=== PATIENT | female | born 1960 | race Caucasian/White ===

== ENCOUNTER 2020-06-10 16:09 | Emergency (ER) | payer BC ==
[2020-06-10] MEDS ORDERED: SODIUM CHLORIDE 0.9% 500 ML 500 ML IV STA (16:25)
--- NOTE | 2020-06-10 16:51 | ED ---
URI HPI - General Source: patient Mode of arrival: ambulatory Limitations: no limitations <Jayro Saavedra - Last Filed: 06/10/20 18:59> <Sweetie Yan - Last Filed: 06/12/20 02:00> - General Chief Complaint: Upper Respiratory Infection Stated Complaint: SOB, Congestion Time Seen by Provider: 06/10/20 16:19 - History of Present Illness Initial Comments: 60-year-old female presents to the emergency department with a chief complaint of sinus congestion and headache. Patient does have history of sinusitis and h as them yearly around this time. Patient reports he typically treated with an appendix. She reports symptoms for the past several days and reports pressure pain in her frontal and maxillary sinuses. She also reports postnasal drip but denies any rhinorrhea. She denies any sore throat or otalgia. Denies any cough chest pain or shortness of breath. Denies any fevers or chills. Denies possible exposure to cold. States she was tested approximately 2 weeks ago and was negative for it. She states she is also very anxious and does not want to be here. (Jayro Saavedra) - Related Data Previous Rx's Medication Instructions Recorded Amoxicillin/Potassium Clav 1 tab PO Q12HR #20 tab 06/10/20 [Augmentin 875-125 Tablet] Allergies Allergy/AdvReac Type Severity Reaction Status Date / Time No Known Allergies Allergy Verified 06/10/20 16:18 Review of Systems ROS Other: All systems not noted in ROS Statement are negative. <Jayro Saavedra - Last Filed: 06/10/20 18:59> ROS Other: All systems not noted in ROS Statement are negative. <Sweetie Yan - Last Filed: 06/12/20 02:00> ROS Statement: Those systems with pertinent positive or pertinent negative responses have been documented in the HPI. Past Medical History Past Medical History: No Reported History History of Any Multi-Drug Resistant Organisms: None Reported Past Surgical History: No Surgical Hx Reported Smoking Status: Never smoker Past Alcohol Use History: None Reported Past Drug Use History: None Reported <Jayro Saavedra - Last Filed: 06/10/20 18:59> General Exam Limitations: no limitations General appearance: alert, in no apparent distress, anxious Head exam: Present: atraumatic, normocephalic, normal inspection Eye exam: Present: normal appearance, PERRL, EOMI Pupils: Present: normal accommodation ENT exam: Present: normal exam, mucous membranes moist, TM's normal bilaterally, normal external ear exam. Absent: normal oropharynx (Frontal and maxillary sinus tenderness) Neck exam: Present: normal inspection, full ROM. Absent: tenderness, lymphadenopathy Respiratory exam: Present: normal lung sounds bilaterally. Absent: respiratory distress, wheezes, rales, rhonchi, stridor, chest wall tenderness, accessory muscle use Cardiovascular Exam: Present: regular rate, normal rhythm, normal heart sounds Extremities exam: Present: normal inspection, full ROM, normal capillary refill. Absent: tenderness, pedal edema, joint swelling Back exam: Present: normal inspection, full ROM. Absent: tenderness, CVA tenderness (R), CVA tenderness (L) Neurological exam: Present: alert, oriented X3 Psychiatric exam: Present: normal affect, anxious Skin exam: Present: warm, dry, intact, normal color <Jayro Saavedra - Last Filed: 06/10/20 18:59> Course Vital Signs 06/10/20 06/10/20 06/10/20 16:14 17:16 17:30 Temperature 98.0 F 98.6 F 98.2 F Pulse Rate 118 H 120 H 81 Respiratory 18 18 15 Rate Blood Pressure 166/83 148/80 156/75 O2 Sat by Pulse 98 96 97 Oximetry 06/10/20 06/10/20 18:21 19:22 Temperature 97.9 F Pulse Rate 118 H 110 H Respiratory 18 18 Rate Blood Pressure 169/85 O2 Sat by Pulse 100 97 Oximetry Medical Decision Making - Lab Data Result diagrams: 06/10/20 18:14 06/10/20 18:14 <Jayro Saavedra - Last Filed: 06/10/20 18:59> - Lab Data Result diagrams: 06/10/20 18:14 06/10/20 18:14 <Sweetie Yan - Last Filed: 06/12/20 02:00> - Medical Decision Making 60-year-old male presents to emergency Department with a chief complaint of sinus congestion. On physical examination, she does have frontal maxillary sinus tenderness. This feels like her typical sinus infection that she gets y early. I will treat her with Augmentin. Patient is also very anxious and is likely causing her tachycardia. No chest pain or shortness of breath. Patient continued to have a heart rate of 120. Laboratory workup was initiated and it was unremarkable. Negative d-dimer. Patient will be discharged with outpatient follow-up. Patient advised to follow-up with the primary care physician. She'll return parameters were thoroughly discussed with patient's worsening agreeable. Case discussed with (Jayro Saavedra) I was available for consultation in the emergency department. The history and physical exam were done by the midlevel provider. I was consulted for this patients care. I reviewed the case with the midlevel provider and based on their presentation of the patient, I agree with the assessment, medical decision making and plan of care as documented. Chart was dictated using [employer] dictation software. Attempts were made to correct any dictation errors however some typographical errors may persist. Patient was seen during a national state of emergency due to the Covid-19 pandemic. (Sweetie Yan) - Lab Data Lab Results 06/10/20 06/10/20 06/10/20 Range/Units 16:32 18:14 18:14 WBC 8.8 (3.8-10.6) k/uL RBC 4.27 (3.80-5.40) m/uL Hgb 13.9 (11.4-16.0) gm/dL Hct 39.4 (34.0-46.0) % MCV 92.3 (80.0-100.0) fL MCH 32.6 (25.0-35.0) pg MCHC 35.3 (31.0-37.0) g/dL RDW 12.0 (11.5-15.5) % Plt Count 270 (150-450) k/uL MPV 7.3 Neutrophils % 68 % Lymphocytes % 23 % Monocytes % 5 % Eosinophils % 1 % Basophils % 1 % Neutrophils # 6.0 (1.3-7.7) k/uL Lymphocytes # 2.1 (1.0-4.8) k/uL Monocytes # 0.4 (0-1.0) k/uL Eosinophils # 0.1 (0-0.7) k/uL Basophils # 0.1 (0-0.2) k/uL PT 11.3 (9.0-12.0) sec INR 1.1 (<1.2) APTT 22.7 (22.0-30.0) sec D-Dimer 0.37 (<0.60) mg/L FEU Sodium (137-145) mmol/L Potassium (3.5-5.1) mmol/L Chloride (98-107) mmol/L Carbon Dioxide (22-30) mmol/L Anion Gap mmol/L BUN (7-17) mg/dL Creatinine (0.52-1.04) mg/dL Est GFR (CKD-EPI)AfAm (>60 ml/min/1.73 sqM) Est GFR (CKD-EPI)NonAf (>60 ml/min/1.73 sqM) Glucose (74-99) mg/dL Calcium (8.4-10.2) mg/dL Magnesium (1.6-2.3) mg/dL Total Bilirubin (0.2-1.3) mg/dL AST (14-36) U/L ALT (4-34) U/L Alkaline Phosphatase (38-126) U/L Troponin I (0.000-0.034) ng/mL Total Protein (6.3-8.2) g/dL Albumin (3.5-5.0) g/dL Coronavirus (PCR) Not Detected (Not Detectd) 06/10/20 06/10/20 Range/Units 18:14 18:14 WBC (3.8-10.6) k/uL RBC (3.80-5.40) m/uL Hgb (11.4-16.0) gm/dL Hct (34.0-46.0) % MCV (80.0-100.0) fL MCH (25.0-35.0) pg MCHC (31.0-37.0) g/dL RDW (11.5-15.5) % Plt Count (150-450) k/uL MPV Neutrophils % % Lymphocytes % % Monocytes % % Eosinophils % % Basophils % % Neutrophils # (1.3-7.7) k/uL Lymphocytes # (1.0-4.8) k/uL Monocytes # (0-1.0) k/uL Eosinophils # (0-0.7) k/uL Basophils # (0-0.2) k/uL PT (9.0-12.0) sec INR (<1.2) APTT (22.0-30.0) sec D-Dimer (<0.60) mg/L FEU Sodium 133 L (137-145) mmol/L Potassium 4.3 (3.5-5.1) mmol/L Chloride 101 (98-107) mmol/L Carbon Dioxide 22 (22-30) mmol/L Anion Gap 10 mmol/L BUN 8 (7-17) mg/dL Creatinine 0.81 (0.52-1.04) mg/dL Est GFR (CKD-EPI)AfAm >90 (>60 ml/min/1.73 sqM) Est GFR (CKD-EPI)NonAf 80 (>60 ml/min/1.73 sqM) Glucose 108 H (74-99) mg/dL Calcium 9.9 (8.4-10.2) mg/dL Magnesium 1.8 (1.6-2.3) mg/dL Total Bilirubin 0.5 (0.2-1.3) mg/dL AST 26 (14-36) U/L ALT 17 (4-34) U/L Alkaline Phosphatase 75 (38-126) U/L Troponin I <0.012 (0.000-0.034) ng/mL Total Protein 7.8 (6.3-8.2) g/dL Albumin 4.6 (3.5-5.0) g/dL Coronavirus (PCR) (Not Detectd) Disposition Is patient prescribed a controlled substance at d/c from ED?: No Time of Disposition: 17:08 <Jayro Saavedra - Last Filed: 06/10/20 18:59> <Sweetie Yan - Last Filed: 06/12/20 02:00> Clinical Impression: Sinusitis Disposition: HOME SELF-CARE Condition: Stable Instructions (If sedation given, give patient instructions): Sinusitis (ED) Additional Instructions: Take prescribed medication as directed. Please return to the Emergency Department if symptoms worsen or any other concerns. Prescriptions: Amoxicillin/Potassium Clav [Augmentin 875-125 Tablet] 1 tab PO Q12HR #20 tab Referrals: Norman Khoury DO [Primary Care Provider] - 1-2 days
[2020-06-10] MEDS ORDERED: ALPRAZolam 0.5 MG TAB PO STA (17:21)
[2020-06-10 18:21] VITALS: RESP 18
[2020-06-10 18:27] LABS: Basophils # (A) 0.1 k/uL (0-0.2); Basophils % (A) 1 %; Eosinophils # (A) 0.1 k/uL (0-0.7); Eosinophils % (A) 1 %; HCT 39.4 % (34.0-46.0); HGB 13.9 gm/dL (11.4-16.0); Lymphocytes # (A) 2.1 k/uL (1.0-4.8); Lymphocytes % (A) 23 %; MCH 32.6 pg (25.0-35.0); MCHC 35.3 g/dL (31.0-37.0); MCV 92.3 fL (80.0-100.0); Mean Platelet Volume 7.3; Monocytes # (A) 0.4 k/uL (0-1.0); Monocytes % (A) 5 %; Neutrophils % (A) 68 %; Platelet Count 270 k/uL (150-450); RBC 4.27 m/uL (3.80-5.40); WBC 8.8 k/uL (3.8-10.6)
[2020-06-10 18:37] LABS: ALT 17 U/L (4-34); AST 26 U/L (14-36); African American GFR (CKD) >90 (>60 ml/min/1.73 sqM); Albumin 4.6 g/dL (3.5-5.0); Alkaline Phosphatase 75 U/L (38-126); Anion Gap 10 mmol/L; Blood Urea Nitrogen 8 mg/dL (7-17); Calcium 9.9 mg/dL (8.4-10.2); Carbon Dioxide 22 mmol/L (22-30); Chloride 101 mmol/L (98-107); Glucose 108 mg/dL (74-99); Magnesium 1.8 mg/dL (1.6-2.3); Non-African American GFR(CKD) 80 (>60 ml/min/1.73 sqM); Potassium 4.3 mmol/L (3.5-5.1); Sodium 133 mmol/L (137-145); Total Bilirubin 0.5 mg/dL (0.2-1.3); Total Protein 7.8 g/dL (6.3-8.2)
[2020-06-10 18:43] LABS: D-Dimer 0.37 mg/L FEU (<0.60); INR 1.1 (<1.2); Partial Thromboplastin Time 22.7 sec (22.0-30.0); Prothrombin Time 11.3 sec (9.0-12.0)
[2020-06-10 19:23] VITALS: BP 169/85; PULSE 110; TEMP 97.9
== END 2020-06-10 19:24 | disposition home or self-care (01) ==
LOC: EC 16:09
DX: J32.9 Chronic sinusitis, unspecified (principal)
CPT/HCPCS: 36415; 80053; 83735; 84484; 85025; 85379; 85610; 85730; 87635; 93005; 99284

== ENCOUNTER → 2020-07-27 | Outpatient (CLI) | payer BC ==
--- NOTE | 2020-07-27 12:54 | ECHOS ---
STRESS ECHOCARDIOGRAM LUMASON: @@ Vial INDICATIONS: Tachycardia. MEDICATIONS: @@ BASELINE HEART RATE: @@ BASELINE BLOOD PRESSURE: @@ MAXIMUM HEART RATE: @@ MAXIMUM BLOOD PRESSURE: @@ 85% MPHR: @@ 100% MPHR: @@ METS: @@ MAXIMUM STAGE REACHED: @@ TOTAL EXERCISE TIME: @@ CLINICAL INFORMATION: Baseline EKG shows sinus tachycardia, normal axis, normal intervals. Patient exercised on Stewart protocol for a total of 6 1/2 minutes achieving 8 METS, 85% of predicted maximal heart rate without chest pain or diagnostic ST-segment depression. Baseline echo shows normal left ventricular size, wall motion and systolic function. Postexercise there is normal hyperdynamic response of all segments of myocardium noted. CONCLUSIONS: 1. Above-average exercise tolerance. 2. Negative stress test by EKG criteria. 3. Negative stress echo. 4. Inappropriate sinus tachycardia. Consider evaluation by Cardiology. MANNY / JUSTENN: [id number] /
--- NOTE | 2020-08-01 14:08 | CE ---
CARDIAC ELECTROPHYSIOLOGY REPORT DCG: REFERRING PHYSICIAN: Dr. Khoury. INDICATION: Cardiac arrhythmia. RESULTS: The patient was monitored for 24 hours. The baseline rhythm appeared to be sinus with a minimum heart rate of 54, maximum 131, average of 82 beats per minute. Ventricular ectopic events were seen rarely mainly in the term of PVCs. Supraventricular ectopic events seen also rarely in the term of PACs. No evidence of significant sinus pauses or sinus arrest. No evidence of any advanced AV block. CONCLUSION: 1. Sinus rhythm as a baseline mechanism. 2. Rare ventricular ectopic events. 3. Rare supraventricular ectopic events. 4. There is no evidence of significant sinus pause or sinus arrest. 5. The patient reported no symptoms. MMODL / IJN: [id number] /
== END | disposition home or self-care (01) ==
LOC: RADNMMAIN 09:55
PROVIDERS: ATTEND Family Medicine
DX: R00.0 Tachycardia, unspecified (principal); I49.9 Cardiac arrhythmia, unspecified; I49.3 Ventricular premature depolarization
CPT/HCPCS: 93225; 93226; 93351